=== PATIENT | male | born 1985 | race Two or more races ===

== ENCOUNTER 2019-04-16 13:56 | Emergency (ER) | payer MEDICAID, OTHER ==
[~2019-04-16] VITALS: Ht 182.9 cm; Wt 90.7 kg
[2019-04-16] MEDS ORDERED: KETOROLAC TROMETH 60MG/2ML VIAL IM ONE (15:45)
[2019-04-16] MEDS ORDERED: METHOCARBAMOL 500 MG TAB PO ONE (15:45)
[2019-04-16 17:06] VITALS: BP 121/84
== END 2019-04-16 17:13 | disposition home or self-care (01) ==
LOC: ER 14:13
DX: G50.0 Trigeminal neuralgia (principal); G89.4 Chronic pain syndrome
CPT/HCPCS: 96372; 99283; J1885

== ENCOUNTER 2019-04-25 20:32 | Emergency (ER) | payer MEDICAID | END 2019-04-25 21:23 | disposition left against medical advice (07) | LOC: ER 20:38 | DX: H92.01 Otalgia, right ear (principal); Z53.21 Procedure and treatment not carried out due to patient leaving prior to being seen by health care provider ==

== ENCOUNTER 2019-05-09 12:48 | Emergency (ER) | payer MEDICAID ==
[~2019-05-09] VITALS: Ht 182.9 cm; Wt 90.7 kg
[2019-05-09] MEDS ORDERED: KETOROLAC TROMETH 30 MG/ML 1ML VIAL IV ONE (13:30)
[2019-05-09] MEDS ORDERED: methylPREDNISolone SOD SUCC 125 MG/2 ML VL IV ONE (13:30)
[2019-05-09 13:50] LABS: Basophils # (auto) 0 uL; Eosinophils # (auto) 0 uL; Lymphocytes # (auto) 0.8 uL; Neutrophils # (auto) 2.8 uL; Red Cell Distribution Width 13.1 % (11.8-14.3)
[2019-05-09 13:53] LABS: Basophils % (auto) 0.3 % (0.0-2.0); Hematocrit 42.4 % (41.0-53.0); Hemoglobin 14.6 g/dL (13.5-17.5); Lymphocytes % (auto) 18.7 % (10.0-50.0); Mean Corpuscular Hemoglobin 34.6 pg (28.0-32.0); Mean Corpuscular Hgb Conc. 34.5 g/dL (32.0-36.0); Mean Corpuscular Volume 100.3 fL (80.0-100.0); Monocytes # (auto) 0.4 uL; Monocytes % (auto) 11.1 % (0.0-12.0); Neutrophils % (auto) 69.9 % (37.0-80.0); Platelet Count (auto) 210 10^3/uL (140-450); Red Blood Cells 4.23 10^6/uL (4.5-5.90)
[2019-05-09 14:09] LABS: Albumin 3.9 g/dL (3.4-5.0); Calcium 8.4 mg/dL (8.5-10.1)
[2019-05-09 14:16] LABS: BUN/Creatinine Ratio 10.3; Bilirubin, Total 0.2 mg/dL (0.2-1.0)
[2019-05-09 15:36] VITALS: BP 101/62
== END 2019-05-09 15:37 | disposition home or self-care (01) ==
LOC: ER 12:52
DX: G50.0 Trigeminal neuralgia (principal); Z91.018 Allergy to other foods
CPT/HCPCS: 36415; 70450; 80053; 85025; 96374; 96375; 99284; J1885; J2930; J7030

== ENCOUNTER 2019-05-28 08:20 | Emergency (ER) | payer MEDICAID ==
[~2019-05-28] VITALS: Ht 182.9 cm; Wt 93.0 kg
[2019-05-28 08:58] VITALS: BP 117/88
[2019-05-28] MEDS ORDERED: KETOROLAC TROMETH 60MG/2ML VIAL IM ONE (09:15)
== END 2019-05-28 09:48 | disposition home or self-care (01) ==
LOC: ER 08:24
DX: G89.4 Chronic pain syndrome (principal); G50.0 Trigeminal neuralgia; Z88.8 Allergy status to other drugs, medicaments and biological substances
CPT/HCPCS: 96372; 99283; J1885

== ENCOUNTER 2019-06-24 19:16 | Emergency (ER) | payer MEDICAID, MEDICARE ==
[~2019-06-24] VITALS: Ht 182.9 cm; Wt 96.6 kg
[2019-06-24 20:32] VITALS: BP 142/98
== END 2019-06-24 21:35 | disposition home or self-care (01) ==
LOC: ER 19:20
DX: H01.001 Unspecified blepharitis right upper eyelid (principal); Z88.8 Allergy status to other drugs, medicaments and biological substances

== ENCOUNTER 2019-10-25 14:45 | Emergency (ER) | payer MEDICAID, MEDICARE ==
[~2019-10-25] VITALS: Ht 182.9 cm; Wt 99.8 kg
[2019-10-25 15:12] VITALS: BP 106/81
[2019-10-25] MEDS ORDERED: methylPREDNISolone SOD SUCC 125 MG/2 ML VL IM ONE (15:45)
== END 2019-10-25 17:06 | disposition left against medical advice (07) ==
LOC: ER 14:45
DX: Z48.01 Encounter for change or removal of surgical wound dressing (principal); R51 Headache; Z88.8 Allergy status to other drugs, medicaments and biological substances
CPT/HCPCS: 99281; J2930

== ENCOUNTER 2021-01-01 07:47 | Emergency (ER) | payer MEDICAID ==
[~2021-01-01] VITALS: Ht 182.9 cm; Wt 104.3 kg
[2021-01-01 08:04] VITALS: BP 125/77
== END 2021-01-01 08:30 | disposition home or self-care (01) ==
LOC: ER 07:47
DX: H57.89 Other specified disorders of eye and adnexa (principal); Z88.8 Allergy status to other drugs, medicaments and biological substances

== ENCOUNTER 2021-01-04 08:01 | Emergency (ER) | payer MEDICAID ==
[~2021-01-04] VITALS: Ht 185.4 cm; Wt 104.3 kg
[2021-01-04] MEDS ORDERED: FLUORESCEIN SOD OPTH TEST STRIP OP ONE (08:30)
[2021-01-04] MEDS ORDERED: TETRACAINE HCL 0.5% OPTH(EYE) SOLN 4ML EACHEYE ONE (08:30)
[2021-01-04 08:38] VITALS: BP 121/85
== END 2021-01-04 09:16 | disposition home or self-care (01) ==
LOC: ER 08:01
DX: S05.01XA Injury of conjunctiva and corneal abrasion without foreign body, right eye, initial encounter (principal); Z88.8 Allergy status to other drugs, medicaments and biological substances; X58.XXXA Exposure to other specified factors, initial encounter; Y93.89 Activity, other specified; Y92.89 Other specified places as the place of occurrence of the external cause; Y99.8 Other external cause status
CPT/HCPCS: 70450

== ENCOUNTER 2021-02-17 06:15 | Emergency (ER) | payer MEDICAID ==
[~2021-02-17] VITALS: Ht 182.9 cm; Wt 99.8 kg
[2021-02-17] MEDS ORDERED: SODIUM CHLORIDE 0.9% 1,000 ML IV ONE (06:45)
[2021-02-17 07:05] LABS: Basophils # (auto) 0 10 ^3/uL (0-0.2); Basophils % (auto) 0.5 % (0.0-2.0); Eosinophils # (auto) 0 10 ^3/uL (0-0.8); Eosinophils % (auto) 0.1 % (0.0-7.0); Hematocrit 40.2 % (41.0-53.0); Hemoglobin 14.5 g/dL (13.5-17.5); Lymphocytes # (auto) 1.1 10 ^3/uL (0.4-5.4); Lymphocytes % (auto) 19.9 % (10.0-50.0); Mean Corpuscular Hemoglobin 34.4 pg (28.0-32.0); Mean Corpuscular Volume 95.6 fL (80.0-100.0); Monocytes # (auto) 0.5 10 ^3/uL (0-1.3); Monocytes % (auto) 8.7 % (0.0-12.0); Neutrophils % (auto) 70.8 % (37.0-80.0); Nucleated Red Blood Cells % 0.1 %; Red Blood Cells 4.21 10^6/uL (4.5-5.90); Red Cell Distribution Width 13.3 % (11.8-14.3); White Blood Cell 5.7 10^3/uL (4.4-10.8)
[2021-02-17 07:17] LABS: Partial Thromboplastin Time 27.4 sec (23.6-33.0)
[2021-02-17 07:35] LABS: Alanine Aminotransferase 40 U/L (16-61); Albumin 3.6 g/dL (3.4-5.0); Anion Gap 9 (5-15); Aspartate Aminotransferase 29 U/L (15-37); BUN/Creatinine Ratio 10.2; Blood Urea Nitrogen 14 mg/dL (7-18); Calcium 8.2 mg/dL (8.5-10.1); Carbon Dioxide 23 mmol/L (21-32); Chloride 109 mmol/L (98-107); GFR African American 76 mL/min; GFR Non-African American 63 mL/min; Glucose 103 mg/dL (74-106); Sodium 141 mmol/L (136-145)
[2021-02-17 07:39] LABS: Alkaline Phosphatase 87 U/L (45-117); Bilirubin, Total 0.3 mg/dL (0.2-1.0); Total Protein 6.8 g/dL (6.4-8.2)
[2021-02-17 07:41] VITALS: BP 118/65
[2021-02-17 07:53] LABS: Potassium 3.8 mmol/L (3.5-5.1)
[2021-02-17 07:56] LABS: Urine Bacteria NONE SEEN /hpf (None Seen); Urine Blood Negative /uL (Negative); Urine Mucus FEW (None Seen); Urine Specific Gravity 1.027 (1.001-1.035); Urine WBC 2 /hpf (0 - 3)
[2021-02-17] MEDS ORDERED: ONDANSETRON HCL 4 MG/2 ML VIAL IV ONE (08:15)
[2021-02-17] MEDS ORDERED: PANTOPRAZOLE 40 MG/10 ML VIAL INJ IV ONE (08:15)
[2021-02-17] MEDS ORDERED: MORPHINE SULFATE INJECTION 2 MG/ML SYRG IV ONE (08:15)
== END 2021-02-17 09:27 | disposition home or self-care (01) ==
LOC: ER 06:15
DX: K29.70 Gastritis, unspecified, without bleeding (principal); F41.9 Anxiety disorder, unspecified; Z91.048 Other nonmedicinal substance allergy status; Z88.8 Allergy status to other drugs, medicaments and biological substances; Z91.018 Allergy to other foods; Z98.890 Other specified postprocedural states
CPT/HCPCS: 36415; 71045; 80053; 81001; 84484; 85025; 85610; 85730; 96361; 96374; 96375; 99284; C9113; J2270; J2405; J7030

== ENCOUNTER 2021-02-21 13:01 | Inpatient (IN) | payer MEDICARE, MEDICAID ==
[~2021-02-21] VITALS: Ht 182.9 cm; Wt 103.4 kg
[2021-02-21] MEDS ORDERED: SODIUM CHLORIDE 0.9% 1,000 ML IV ONE (13:15)
[2021-02-21] MEDS ORDERED: PANTOPRAZOLE 40 MG/10 ML VIAL INJ IV ONE (13:15)
[2021-02-21 13:47] LABS: Basophils # (auto) 0 10 ^3/uL (0-0.2); Basophils % (auto) 0.4 % (0.0-2.0); Eosinophils # (auto) 0 10 ^3/uL (0-0.8); Hematocrit 42.7 % (41.0-53.0); Hemoglobin 14.8 g/dL (13.5-17.5); Lymphocytes % (auto) 22.1 % (10.0-50.0); Mean Corpuscular Hgb Conc. 34.8 g/dL (32.0-36.0); Mean Corpuscular Volume 94.9 fL (80.0-100.0); Monocytes # (auto) 0.4 10 ^3/uL (0-1.3); Monocytes % (auto) 8.9 % (0.0-12.0); Neutrophils # (auto) 3.1 10 ^3/uL (1.6-8.6); Neutrophils % (auto) 68.6 % (37.0-80.0); Red Cell Distribution Width 13.2 % (11.8-14.3); White Blood Cell 4.5 10^3/uL (4.4-10.8)
[2021-02-21 13:54] LABS: Calcium 8.6 mg/dL (8.5-10.1); Chloride 112 mmol/L (98-107); Potassium 3.8 mmol/L (3.5-5.1); Sodium 139 mmol/L (136-145)
[2021-02-21 13:57] LABS: INR 0.99 (0.9-1.15); Partial Thromboplastin Time 27.1 sec (23.6-33.0)
[2021-02-21 14:01] LABS: Alanine Aminotransferase 40 U/L (16-61); Albumin 3.8 g/dL (3.4-5.0); Alkaline Phosphatase 92 U/L (45-117); Anion Gap 6 (5-15); Aspartate Aminotransferase 19 U/L (15-37); BUN/Creatinine Ratio 10.7; Bilirubin, Total 0.4 mg/dL (0.2-1.0); Blood Urea Nitrogen 12 mg/dL (7-18); Carbon Dioxide 21 mmol/L (21-32); GFR African American 97 mL/min; GFR Non-African American 80 mL/min; Glucose 114 mg/dL (74-106); Total Protein 6.8 g/dL (6.4-8.2)
[2021-02-21] MEDS ORDERED: MORPHINE SULFATE 4 MG/ML SYR/VIAL IV ONE (15:00)
[2021-02-21] MEDS ORDERED: ONDANSETRON HCL 4 MG/2 ML VIAL IV ONE (15:00)
[2021-02-21] MEDS ORDERED: GOLYTELY 4L KIT PO ONE (16:30)
[2021-02-21] MEDS ORDERED: MORPHINE SULFATE INJECTION 2 MG/ML SYRG IV ONE (18:15)
[2021-02-21] MEDS ORDERED: LORazepam 2MG/ML-1ML VIAL IV PRN (20:15)
[2021-02-21] MEDS ORDERED: NITROGLYCERIN 0.4 MG SL TAB SL PRN (20:15)
[2021-02-21] MEDS ORDERED: MORPHINE SULFATE INJECTION 2 MG/ML SYRG IV PRN (20:15)
[2021-02-21] MEDS ORDERED: ONDANSETRON HCL 4 MG/2 ML VIAL IV PRN (20:15)
[2021-02-21] MEDS ORDERED: hydrALAZINE HCL 20 MG/ML VL IV PRN (20:15)
[2021-02-21] MEDS: SODIUM CHLORIDE 0.9% 1,000 ML IV SCH (20:32)
[2021-02-21 21:00] VITALS: BP 108/65
[2021-02-21 22:00] VITALS: BP 118/71
[2021-02-21] MEDS: PANTOPRAZOLE 40 MG/10 ML VIAL INJ IV SCH (22:13)
[2021-02-21] MEDS: ARTIFICIAL TEARS 15ml EACHEYE PRN (22:13)
[2021-02-21] MEDS: HYDROmorphone HCL 2 MG/ML VL IV PRN (22:13)
[2021-02-22] MEDS ORDERED: PREG200C19 PO (02:12)
[2021-02-22] MEDS ORDERED: CARB200T5 PO (02:12)
[2021-02-22] MEDS: HYDROmorphone HCL 2 MG/ML VL IV PRN ×3 (02:14→14:09)
[2021-02-22 05:00] VITALS: BP 107/60
[2021-02-22 05:57] LABS: Basophils # (auto) 0 10 ^3/uL (0-0.2); Basophils % (auto) 0.5 % (0.0-2.0); Eosinophils # (auto) 0 10 ^3/uL (0-0.8); Hematocrit 37.5 % (41.0-53.0); Lymphocytes # (auto) 0.8 10 ^3/uL (0.4-5.4); Lymphocytes % (auto) 18.1 % (10.0-50.0); Mean Corpuscular Hemoglobin 33.4 pg (28.0-32.0); Mean Corpuscular Hgb Conc. 34.8 g/dL (32.0-36.0); Mean Corpuscular Volume 95.9 fL (80.0-100.0); Monocytes # (auto) 0.3 10 ^3/uL (0-1.3); Monocytes % (auto) 7.3 % (0.0-12.0); Neutrophils # (auto) 3.1 10 ^3/uL (1.6-8.6); Neutrophils % (auto) 74.1 % (37.0-80.0); Red Blood Cells 3.91 10^6/uL (4.5-5.90); Red Cell Distribution Width 13.1 % (11.8-14.3); White Blood Cell 4.2 10^3/uL (4.4-10.8)
[2021-02-22] MEDS: SODIUM CHLORIDE 0.9% 1,000 ML IV SCH (06:15)
[2021-02-22 06:16] LABS: INR 1.07 (0.9-1.15)
[2021-02-22 06:57] LABS: Albumin 3.1 g/dL (3.4-5.0); BUN/Creatinine Ratio 12.5; Calcium 8.1 mg/dL (8.5-10.1); Potassium 3.4 mmol/L (3.5-5.1)
[2021-02-22 07:00] LABS: Bilirubin, Total 0.4 mg/dL (0.2-1.0); Total Protein 5.9 g/dL (6.4-8.2)
[2021-02-22] MEDS: ARTIFICIAL TEARS 15ml EACHEYE PRN (07:25)
[2021-02-22 09:00] VITALS: BP 108/55
[2021-02-22] MEDS ORDERED: diphenhdrAMINE HCL 50 MG/1 ML VL ONE (10:03)
[2021-02-22] MEDS: PANTOPRAZOLE 40 MG/10 ML VIAL INJ IV SCH (10:27)
[2021-02-22] MEDS: MIDAZOLAM HCL 5 MG/ML-1ML VIAL ONE ×3 (10:35→10:51)
[2021-02-22] MEDS: fentaNYL CITRATE 100 MCG/2 ML VL ONE ×3 (10:35→10:51)
[2021-02-22 13:00] VITALS: BP 114/61
[2021-02-22] MEDS ORDERED: PREGABALIN 25 MG CAP PO ONE (15:30)
[2021-02-22] MEDS ORDERED: KETOROLAC TROMETH 30 MG/ML 1ML VIAL IV ONE (15:30)
[2021-02-22 17:00] VITALS: BP 113/71
== END 2021-02-22 17:30 | disposition home or self-care (01) | DRG 378 ==
LOC: ER 13:02 → OVERFLOW 20:01 → WEST WING 20:54
PROVIDERS: ADMIT Family Medicine; ATTEND Family Medicine
PROC: 0DBB8ZX Excision of Ileum, Via Natural or Artificial Opening Endoscopic, Diagnostic (ICD-10-PCS; 2021-02-22)
PROC: 0DBE8ZX Excision of Large Intestine, Via Natural or Artificial Opening Endoscopic, Diagnostic (ICD-10-PCS; 2021-02-22)
PROC: 0W3P8ZZ Control Bleeding in Gastrointestinal Tract, Via Natural or Artificial Opening Endoscopic (ICD-10-PCS; principal; 2021-02-22 10:35)
DX: K55.21 Angiodysplasia of colon with hemorrhage (principal); D62 Acute posthemorrhagic anemia; E27.1 Primary adrenocortical insufficiency; R16.2 Hepatomegaly with splenomegaly, not elsewhere classified; G50.0 Trigeminal neuralgia; F41.9 Anxiety disorder, unspecified; K21.9 Gastro-esophageal reflux disease without esophagitis; R73.9 Hyperglycemia, unspecified; Z20.822 Contact with and (suspected) exposure to COVID-19; H04.129 Dry eye syndrome of unspecified lacrimal gland; Z88.8 Allergy status to other drugs, medicaments and biological substances
CPT/HCPCS: 36415; 45380; 71045; 74176; 80053; 84443; 84484; 85025; 85610; 85730; 86850; 86900; 86901; 87426; 96361; 96374; 96375; C9113; G0378; J1885; J2250; J2405

== ENCOUNTER 2021-02-26 22:22 | Inpatient (IN) | payer MEDICARE, MEDICAID ==
[~2021-02-26] VITALS: Ht 182.9 cm; Wt 103.7 kg
[~2021-02-26 22:22] MED LIST: CARB200T5 PO; PREG200C19 PO
[2021-02-27 06:51] LABS: Basophils # (auto) 0 10 ^3/uL (0-0.2); Basophils % (auto) 0.5 % (0.0-2.0); Eosinophils # (auto) 0 10 ^3/uL (0-0.8); Eosinophils % (auto) 0.1 % (0.0-7.0); Hematocrit 40.9 % (41.0-53.0); Hemoglobin 14.6 g/dL (13.5-17.5); Lymphocytes # (auto) 1.2 10 ^3/uL (0.4-5.4); Lymphocytes % (auto) 24.9 % (10.0-50.0); Mean Corpuscular Hemoglobin 33.6 pg (28.0-32.0); Mean Corpuscular Hgb Conc. 35.6 g/dL (32.0-36.0); Mean Corpuscular Volume 94.4 fL (80.0-100.0); Monocytes # (auto) 0.4 10 ^3/uL (0-1.3); Neutrophils # (auto) 3.2 10 ^3/uL (1.6-8.6); Neutrophils % (auto) 66.5 % (37.0-80.0); Nucleated Red Blood Cells % 0.1 %; Red Blood Cells 4.33 10^6/uL (4.5-5.90); Red Cell Distribution Width 13.1 % (11.8-14.3); White Blood Cell 4.8 10^3/uL (4.4-10.8)
[2021-02-27 07:00] LABS: Alanine Aminotransferase 37 U/L (16-61); Albumin 3.8 g/dL (3.4-5.0); Anion Gap 10 (5-15); Aspartate Aminotransferase 16 U/L (15-37); Blood Urea Nitrogen 11 mg/dL (7-18); Calcium 8.6 mg/dL (8.5-10.1); Carbon Dioxide 22 mmol/L (21-32); Chloride 108 mmol/L (98-107); GFR African American 110 mL/min; GFR Non-African American 91 mL/min; Glucose 92 mg/dL (74-106); Lipase 101 U/L (73-393); Magnesium 2.3 mg/dL (1.6-2.6); Potassium 3.4 mmol/L (3.5-5.1); Sodium 140 mmol/L (136-145)
[2021-02-27 07:02] LABS: Lactic Acid w/Reflex 2.1 mmol/L (0.4-2.0)
[2021-02-27 07:05] LABS: Alkaline Phosphatase 81 U/L (45-117); Bilirubin, Total 0.4 mg/dL (0.2-1.0)
[2021-02-27] MEDS ORDERED: HYDROmorphone HCL 2 MG/ML VL IV ONE (08:15)
[2021-02-27] MEDS ORDERED: SODIUM CHLORIDE 0.9% 1,000 ML IV ONE (08:15)
[2021-02-27] MEDS ORDERED: METOCLOPRAMIDE HCL 5MG/ml INJ 2ml VIAL IV ONE (08:15)
[2021-02-27] MEDS ORDERED: SODIUM CHLORIDE 0.9% 500 ML IVB ONE (08:15)
[2021-02-27] MEDS ORDERED: IOHEXOL 300 MG/ML 100ML BOTTLE IJ ONE (08:24)
[2021-02-27] MEDS ORDERED: METOCLOPRAMIDE HCL 5MG/ml INJ 2ml VIAL IV PRN (09:45)
[2021-02-27] MEDS ORDERED: NITROGLYCERIN 0.4 MG SL TAB SL PRN (10:30)
[2021-02-27] MEDS ORDERED: ONDANSETRON HCL 4 MG/2 ML VIAL IV PRN (10:30)
[2021-02-27] MEDS: PANTOPRAZOLE 40 MG/10 ML VIAL INJ IV SCH ×2 (11:30→22:08)
[2021-02-27] MEDS: SOD CHL 0.9%/ KCL 20MEQ 1,000 ML IV SCH ×2 (11:57→23:05)
[2021-02-27] MEDS: SUCRALFATE 1 GM/10 ML ORAL SUSP PO SCH ×3 (12:23→22:08)
[2021-02-27] MEDS: carBAMazepine 200 MG TAB PO SCH ×2 (15:05→22:09)
[2021-02-27] MEDS: PREGABALIN 25 MG CAP PO SCH ×2 (16:56→22:09)
[2021-02-27] MEDS: MORPHINE SULFATE INJECTION 2 MG/ML SYRG IV PRN ×2 (16:57→20:54)
[2021-02-27 18:54] LABS: Urine Bacteria NONE SEEN /hpf (None Seen); Urine Blood Negative /uL (Negative); Urine Specific Gravity 1.031 (1.001-1.035); Urine WBC 1 /hpf (0 - 3)
[2021-02-27] MEDS: HYDROCORTISONE 10 MG TAB PO SCH (22:08)
[2021-02-28 00:10] VITALS: BP 103/59
[2021-02-28] MEDS: MORPHINE SULFATE INJECTION 2 MG/ML SYRG IV PRN ×5 (01:16→23:16)
[2021-02-28 05:00] VITALS: BP 106/64
[2021-02-28] MEDS: carBAMazepine 200 MG TAB PO SCH ×3 (05:32→21:07)
[2021-02-28] MEDS: PREGABALIN 25 MG CAP PO SCH ×3 (05:32→22:00)
[2021-02-28] MEDS: SOD CHL 0.9%/ KCL 20MEQ 1,000 ML IV SCH (05:33)
[2021-02-28] MEDS: SUCRALFATE 1 GM/10 ML ORAL SUSP PO SCH ×4 (07:00→21:07)
[2021-02-28 09:00] VITALS: BP 115/55
[2021-02-28] MEDS ORDERED: SODIUM CHLORIDE LOCK 10 ML ONE (09:42)
[2021-02-28] MEDS ORDERED: LIDOCAINE VISCOUS 2% 15ML UD ONE (09:42)
[2021-02-28] MEDS ORDERED: diphenhdrAMINE HCL 50 MG/1 ML VL ONE (09:43)
[2021-02-28] MEDS ORDERED: fentaNYL CITRATE 100 MCG/2 ML VL ONE (09:43)
[2021-02-28] MEDS: HYDROCORTISONE 10 MG TAB PO SCH ×2 (10:00→21:07)
[2021-02-28] MEDS: PANTOPRAZOLE 40 MG/10 ML VIAL INJ IV SCH ×2 (10:40→21:06)
[2021-02-28 12:58] VITALS: BP 96/61
[2021-02-28] MEDS: MIDAZOLAM HCL 5 MG/ML-1ML VIAL ONE ×2 (13:08→13:11)
[2021-02-28 17:00] VITALS: BP 128/88
[2021-02-28] MEDS: HYOSCYAMINE SULF 0.125 MG ODT TAB PO PRN (21:07)
[2021-02-28 22:00] VITALS: BP 116/74
[2021-03-01] MEDS ORDERED: TEMAZEPAM 15 MG CAP PO ONE (01:15)
[2021-03-01] MEDS: MORPHINE SULFATE INJECTION 2 MG/ML SYRG IV PRN ×5 (03:20→21:38)
[2021-03-01 05:00] VITALS: BP 94/61
[2021-03-01] MEDS: SUCRALFATE 1 GM/10 ML ORAL SUSP PO SCH ×4 (06:22→21:45)
[2021-03-01] MEDS: carBAMazepine 200 MG TAB PO SCH ×3 (06:22→21:37)
[2021-03-01 09:00] VITALS: BP 111/66
[2021-03-01] MEDS ORDERED: PREGABALIN 25 MG CAP PO ONE ×2 (09:15→15:15)
[2021-03-01] MEDS: PANTOPRAZOLE 40 MG/10 ML VIAL INJ IV SCH ×2 (10:09→21:36)
[2021-03-01] MEDS: HYDROCORTISONE 10 MG TAB PO SCH ×2 (10:10→21:37)
[2021-03-01 13:00] VITALS: BP 101/51
[2021-03-01] MEDS ORDERED: OMNIPAQUE ORAL SOLN 500ml 12mg/ml PO ONE (15:21)
[2021-03-01] MEDS ORDERED: IOHEXOL 350 MG/ML 100ML IJ ONE (19:01)
[2021-03-01] MEDS ORDERED: PREGABALIN 25 MG CAP PO SCH ×2 (19:15→22:00)
[2021-03-01] MEDS: PREGABALIN 25 MG CAP PO SCH (21:37)
[2021-03-01] MEDS: PREGABALIN CAPSULE 75 MG CAP PO SCH (21:37)
[2021-03-01 22:00] VITALS: BP 109/72
[2021-03-02] MEDS: MORPHINE SULFATE INJECTION 2 MG/ML SYRG IV PRN ×3 (01:57→12:59)
[2021-03-02] MEDS: PREGABALIN 25 MG CAP PO SCH ×2 (05:00→14:39)
[2021-03-02] MEDS: PREGABALIN CAPSULE 75 MG CAP PO SCH ×2 (05:00→14:00)
[2021-03-02] MEDS: carBAMazepine 200 MG TAB PO SCH ×2 (05:00→14:40)
[2021-03-02 05:30] VITALS: BP 94/59
[2021-03-02] MEDS: SUCRALFATE 1 GM/10 ML ORAL SUSP PO SCH ×2 (05:59→13:26)
[2021-03-02 09:11] VITALS: BP 95/53
[2021-03-02] MEDS: HYDROCORTISONE 10 MG TAB PO SCH (09:46)
[2021-03-02] MEDS: PANTOPRAZOLE 40 MG/10 ML VIAL INJ IV SCH (09:46)
[2021-03-02] MEDS: HYOSCYAMINE SULF 0.125 MG ODT TAB PO PRN (12:51)
[2021-03-02 13:17] VITALS: BP 107/65
== END 2021-03-02 15:00 | disposition left against medical advice (07) | DRG 445 ==
LOC: ER 22:26 → OVERFLOW 02-27 10:29 → WEST WING 02-27 23:02
PROVIDERS: ADMIT Nurse Practitioner Acute Care; ATTEND Internal Medicine
PROC: 0DB68ZX Excision of Stomach, Via Natural or Artificial Opening Endoscopic, Diagnostic (ICD-10-PCS; principal; 2021-02-28 13:05)
DX: K82.8 Other specified diseases of gallbladder (principal); E27.40 Unspecified adrenocortical insufficiency; E87.6 Hypokalemia; K29.80 Duodenitis without bleeding; K29.70 Gastritis, unspecified, without bleeding; E66.9 Obesity, unspecified; F41.9 Anxiety disorder, unspecified; K21.9 Gastro-esophageal reflux disease without esophagitis; Z53.29 Procedure and treatment not carried out because of patient's decision for other reasons; R16.2 Hepatomegaly with splenomegaly, not elsewhere classified; Z20.822 Contact with and (suspected) exposure to COVID-19; Z83.3 Family history of diabetes mellitus; Z88.8 Allergy status to other drugs, medicaments and biological substances; Z68.32 Body mass index [BMI] 32.0-32.9, adult
CPT/HCPCS: 36415; 43239; 74018; 74177; 76705; 78226; 78264; 80053; 81001; 82784; 83516; 83605; 83690; 83735; 83880; 84484; 85025; 85610; 85652; 86141; 86255; 86850; 86900; 86901; 87426; 96374; 96375; C9113; G0378; J2250

== ENCOUNTER 2021-03-11 16:06 | Emergency (ER) | payer MEDICARE, MEDICAID ==
[~2021-03-11] VITALS: Ht 182.9 cm; Wt 99.8 kg
[2021-03-11 16:09] VITALS: BP 123/93
[2021-03-11 16:42] LABS: Basophils # (auto) 0 10 ^3/uL (0-0.2); Basophils % (auto) 0.4 % (0.0-2.0); Eosinophils # (auto) 0 10 ^3/uL (0-0.8); Eosinophils % (auto) 0.1 % (0.0-7.0); Hematocrit 43.7 % (41.0-53.0); Hemoglobin 15.1 g/dL (13.5-17.5); Lymphocytes # (auto) 0.9 10 ^3/uL (0.4-5.4); Lymphocytes % (auto) 19.2 % (10.0-50.0); Mean Corpuscular Hemoglobin 33.1 pg (28.0-32.0); Mean Corpuscular Hgb Conc. 34.4 g/dL (32.0-36.0); Mean Corpuscular Volume 96.1 fL (80.0-100.0); Monocytes # (auto) 0.4 10 ^3/uL (0-1.3); Monocytes % (auto) 7.6 % (0.0-12.0); Neutrophils # (auto) 3.4 10 ^3/uL (1.6-8.6); Neutrophils % (auto) 72.7 % (37.0-80.0); Nucleated Red Blood Cells % 0.2 %; Red Blood Cells 4.55 10^6/uL (4.5-5.90); Red Cell Distribution Width 13.3 % (11.8-14.3); White Blood Cell 4.7 10^3/uL (4.4-10.8)
[2021-03-11 16:57] LABS: Albumin 3.8 g/dL (3.4-5.0); BUN/Creatinine Ratio 5.8; Calcium 8.5 mg/dL (8.5-10.1); Potassium 3.5 mmol/L (3.5-5.1)
[2021-03-11 17:00] LABS: Bilirubin, Total 0.3 mg/dL (0.2-1.0); Total Protein 7.1 g/dL (6.4-8.2)
== END 2021-03-11 20:35 | disposition home or self-care (01) ==
LOC: ER 16:06
DX: R10.13 Epigastric pain (principal); K21.9 Gastro-esophageal reflux disease without esophagitis; Z79.899 Other long term (current) drug therapy; Z88.8 Allergy status to other drugs, medicaments and biological substances; Z91.018 Allergy to other foods
CPT/HCPCS: 36415; 76705; 80053; 83690; 85025